=== PATIENT | female | born 1945 | race Caucasian/White ===

== ENCOUNTER → 2024-05-08 | Day surgery (SDC) | payer MEDICAID ==
[~2024-05-08] VITALS: Ht 165.1 cm; Wt 79.4 kg
[~2024-05-08] MED LIST: ALBU90AE IH; AMLO-504 PO; BUDE6HFA IH; CLINDAMYCIN 900MG PREMIX 50 ML IV ONE; CYCL5TAB3 PO; DICL100G58 TP; FAMO40TA70 PO; HYDR-459 PO; LABETALOL 5MG/ML 4ML INJ IV PRN; LACTATED RINGERS 1,000 ML IV SCH; LIDO700A30 TP; LORA10TA7 PO; MEPERIDINE HCL/PF 25MG/ML CPJ IV PRN
[2024-05-08] MEDS: HYDROMORPHONE HCL/PF 1MG/ML INJ IV PRN (11:33)
[2024-05-08] MEDS: ONDANSETRON HCL 4MG/2ML INJ IV PRN (11:52)
[2024-05-08] MEDS: DEXAMETHASONE 4MG/ML 1ML VIAL IV NR (13:06)
[2024-05-08] MEDS: ACETAMINOPHEN 1000MG/100ML 100 ML IV NR (13:06)
[2024-05-08] MEDS: ACETAMINOPHEN WITH CODEINE 300/30MG TABLET PO NR (14:58)
[2024-05-08 17:09] VITALS: BP 132/63; PULSE 83; RESP 20
[2024-05-08] MEDS: METOCLOPRAMIDE HCL 10MG/2ML VIAL IV NR (17:09)
== END | disposition home or self-care (01) ==
LOC: OR 06:15 → EDSTATUS 09:00 → EDUNIT# 10:00
PROVIDERS: ATTEND Surgery
DX: K80.10 Calculus of gallbladder with chronic cholecystitis without obstruction (principal); I10 Essential (primary) hypertension; J45.909 Unspecified asthma, uncomplicated; K21.9 Gastro-esophageal reflux disease without esophagitis; M19.90 Unspecified osteoarthritis, unspecified site; Z79.899 Other long term (current) drug therapy; Z98.890 Other specified postprocedural states
CPT/HCPCS: 47562; 88304; J3490; J1100; J2765; J2405; J1171; J7030; J0131